=== PATIENT | female | born 1995 | race African-American/Black ===

== ENCOUNTER 2019-08-20 23:13 | Emergency (ER) | payer OTHER, SELFPAY ==
[2019-08-20 23:31] VITALS: BP 105/54; PULSE 93; RESP 18; TEMP 36.7; O2SAT 100
--- NOTE | 2019-08-21 02:10 | ED.URI ---
HPI - URI/Sore Throat General Chief Complaint: Upper Respiratory Infection Stated Complaint: cold Time Seen by Provider: 08/21/19 01:46 Source: patient and RN notes reviewed Mode of arrival: ambulatory Limitations: no limitations History of Present Illness HPI Narrative: A 24 y/o female presents to the ED with a constant, burning, sore throat beginning earlier today. She reports associated ear pain. She notes that swallowing aggravates the pain and denies anything alleviating it. She also notes that her friend was recently dx with strep. She denies any fevers, chills, sweats, cough, or SOB. MD elicited complaint: sore throat Onset (ago): hour(s) (earlier today) Consistency: constant Exacerbating factors: swallowing Relieving factors: nothing Context: sick contacts Associated symptoms: ear pain Review of Systems Review of Systems: Narrative: CONSTITUTIONAL: Denies fever, chills, or sweats. ENT: Reports a sore throat and ear pain. RESPIRATORY: Denies cough or dyspnea. All systems reviewed & are unremarkable except as noted in HPI and below PMFSH Past Medical History Medical History (Updated 08/21/19 @ 03:15 by Sabino Hanley) Healthy female Surgical History Surgical History (Updated 08/21/19 @ 03:15 by Sabino Hanley) No history of previous surgery Social History Social History (Updated 08/21/19 @ 03:16 by Sabino Hanley) Smoking status: Never smoker Gender identity (if verbalized by the patient): Female Exam Narrative: Exam Narrative: GENERAL: Well-appearing, well-nourished, and in no acute distress. HEAD: Normocephalic, atraumatic. EYES: PERRLA and EOMI. ENT: Nares clear, no rhinorrhea or epistaxis. Mucous membranes moist. Erythema of the oropharynx. No exudate on the tonsillar. No trismus. Normal TM's. NECK: Supple. No cervical or submandibular lymphadenopathy. CHEST: Clear to auscultation. No respiratory distress. HEART: Regular rate and rhythm. No murmur heard. Normal peripheral pulses. ABDOMEN: Soft, nontender, nondistended, normal active bowel sounds. EXTREMITIES: Normal range of motion. No edema. SKIN: Warm, dry, no rash. NEURO: No focal deficits. Alert and oriented X3. Course Course Emergency Course: Patient with strep pharyngitis which we will treat with Decadron and oral antibiotics. Patient is protecting her airway, no difficulty swallowing, otherwise hemodynamically stable and well-appearing. Patient discharged home in stable condition. Vital Signs Vital signs: Vital Signs Temperature 36.7 C 08/20/19 23:31 Pulse Rate 93 08/20/19 23:31 Respiratory Rate 18 08/20/19 23:31 Blood Pressure 105/54 L 08/20/19 23:31 Pulse Oximetry 100 08/20/19 23:31 Temperature 36.7 C 08/20/19 23:31 Pulse Rate 72 08/21/19 02:56 Respiratory Rate 18 08/21/19 02:56 Blood Pressure 122/68 08/21/19 02:56 Pulse Oximetry 98 08/21/19 02:56 MDM - URI/Sore Throat Lab Data Labs: Strep Screen Positive Group A Strep *(Reference Range: Negative)* Discharge Plan Discharge Clinical Impression: Strep pharyngitis Patient Disposition: Home, Self-Care Condition: Stable Instructions: Antibiotic Form, Strep Throat (ED) Additional Instructions: Follow up with your primary care physician by phone today to set up for reevaluation in the next 7 -10 days. Go to ER for worsening pain, nausea/vomiting, fever/chills, worsening bleeding, chest pain, shortness of breath, blood in stools or urine, etc. or any other concerns. Take any prescribed medications as directed. Stay well-hydrated If you do not have a drug allergy to tylenol or motrin and can tolerate it then take tylenol or motrin as needed for discomfort/pain. Prescriptions: New azithromycin 500 mg tablet See Rx Instructions .ROUTE .COMPLEX 5 Days Qty: 5 RF: 0 Follow-up/Referrals: PHYSICIAN,[employer] LEV[employer] ACCOUNT MANAGER [Primary Care Provider] - Discharge Date/Time: 08/21/19 02:57
[2019-08-21 02:56] VITALS: BP 122/68; PULSE 72; RESP 18; O2SAT 98
== END 2019-08-21 02:57 | disposition home or self-care (01) ==
PROVIDERS: Emergency Provider Emergency Medicine
DX: J02.0 Streptococcal pharyngitis (principal)
CPT/HCPCS: 87880; 99283; J1100